=== PATIENT | male | born 1995 | race African-American/Black ===

== ENCOUNTER 2017-01-06 20:55 | Emergency (ER) | payer BC ==
--- NOTE | ~2017-01-06 | CR63 ---
[facility] A Service of [facility] RADIOLOGY TEXT RESULTS PATIENT: REGAN KNOX LOCATION: SED : 95 UNIT #: [id number] AGE: [address]: Hunter Kramer SEX: M ORDER DR: [id number] [place] [id number] E MR#: [id number] Acc #: [id number] NAME: REGAN KNOX : 1995 SEX: M STUDY DATE/TIME: 01/06/2017 20:51 UNIT: SED ROOM: STUDY DESCRIPTION: CR Chest 2 View Attending Physician: Hunter Kramer P.A.-C. Ordering Physician: Hunter Kramer P.A.-C. Primary Care Physician: Sami Luevano M.D. MEDICAL IMAGING REPORT This report is preliminary unless electronic signature is present. EXAM Two-view chest, 01/06/2017 INDICATIONS 21-year-old male with chest pain for a few months, reported chest cyst. Tobacco abuse, cough. TECHNIQUE Two-view chest was performed. We have no comparisons. FINDINGS Cardiac silhouette is within normal limits. Vascularity normal, lungs clear, no pneumothorax or effusion. IMPRESSION 1. Negative chest. We have no comparisons. Dictated by... Karl Morse M.D. THIS IS AN ELECTRONICALLY VERIFIED REPORT Karl Morse M.D. at 01/07/2017 11:41 AM DAVID/trang TD: 01/07/2017 00:21 JOB #: [id number] MEDICAL IMAGING REPORT Page 1 of 1
--- NOTE | ~2017-01-06 | EKG ---
PATIENT: REGAN KNOX UNIT #: [id number] Ventricular Rate: 71 BPM Atrial Rate: 71 BPM P-R Interval: 138 ms QRS Duration: 84 ms Q-T Interval: 370 ms QTC Calculation(Bezet): 402 ms P [place]: 69 degrees Calculated R [place]: 87 degrees Calculated T [place]: 58 degrees Diagnosis Line: Normal sinus rhythm Diagnosis Line: Nonspecific ST and T wave abnormality Diagnosis Line: Otherwise normal ECG Diagnosis Line: No previous ECGs available Diagnosis Line: Confirmed by ISIDORO LEAVITT MD ([id number]) on 01/08/2017 Diagnosis Line: 8:03:53 PM INTERPRETING MD: DAGMAR LEE
[~2017-01-06 20:55] MED LIST: NO MEDICATIONS
== END 2017-01-06 21:44 | disposition home or self-care (01) ==
LOC: SED 20:55
DX: R07.89 Other chest pain (principal); R00.2 Palpitations; F17.210 Nicotine dependence, cigarettes, uncomplicated
CPT/HCPCS: 71020; 93005; 99284

== ENCOUNTER 2017-03-18 10:48 | Emergency (ER) | payer BC | END 2017-03-18 11:45 | disposition home or self-care (01) | LOC: CFTX 10:48 → CED 10:48 → CFTX 11:39 | DX: L02.214 Cutaneous abscess of groin (principal); Z98.890 Other specified postprocedural states | CPT/HCPCS: 99283 ==